=== PATIENT | male | born 1995 | race Caucasian/White ===

== ENCOUNTER 2018-06-15 20:14 | Emergency (ER) | payer SELFPAY ==
[~2018-06-15] VITALS: Ht 165.1 cm; Wt 63.5 kg
[~2018-06-15 20:14] MED LIST: BACTRIM DS 8001 TA1 PO; CYCLOBENZAPRINE5 M3 PO; HYDROCODONE BIT1 T11 PO; K-TAB20 MEQ PO; KEFLEX500 MG PO; MOTRIN800 MG PO; Motrin,Rufen800 MG PO; NAPROSYN500 MG PO; NKHM; NKHM PO; Ondansetron4 MG PO; PENICILLIN VK500 MG PO; PERCOCET 325 MG1 TA6 PO; ULTRAM50 MG PO; ZANTAC150 MG PO; ZOFRAN ODT4 MG SL
== END 2018-06-15 21:35 | disposition home or self-care (01) ==
LOC: ED 20:14
DX: S60.222A Contusion of left hand, initial encounter (principal); W23.0XXA Caught, crushed, jammed, or pinched between moving objects, initial encounter; Y93.89 Activity, other specified; Y92.89 Other specified places as the place of occurrence of the external cause; Y99.8 Other external cause status

== ENCOUNTER 2022-03-29 20:58 | Emergency (ER) | payer OTHER ==
[~2022-03-29] VITALS: Ht 165.1 cm; Wt 68.0 kg
== END 2022-03-29 22:48 | disposition home or self-care (01) ==
LOC: ED 20:58
DX: S93.401A Sprain of unspecified ligament of right ankle, initial encounter (principal); Z90.49 Acquired absence of other specified parts of digestive tract; W18.49XA Other slipping, tripping and stumbling without falling, initial encounter; Y93.89 Activity, other specified; Y92.89 Other specified places as the place of occurrence of the external cause; Y99.8 Other external cause status

== ENCOUNTER 2024-05-05 17:11 | Emergency (ER) | payer OTHER ==
[~2024-05-05] VITALS: Ht 165.1 cm; Wt 61.2 kg
== END 2024-05-05 19:27 | disposition home or self-care (01) ==
LOC: ED 17:11
DX: S90.32XA Contusion of left foot, initial encounter (principal); Z90.49 Acquired absence of other specified parts of digestive tract; Z98.890 Other specified postprocedural states; W20.8XXA Other cause of strike by thrown, projected or falling object, initial encounter; Y93.89 Activity, other specified; Y92.89 Other specified places as the place of occurrence of the external cause; Y99.0 Civilian activity done for income or pay